=== PATIENT | female | born 1990 | race Two or more races ===

== ENCOUNTER 2021-05-12 20:17 | Emergency (ER) | payer OTHER ==
[2021-05-12 20:47] VITALS: BP 111/62; PULSE 101; TEMP 101.3; BMI 21.0
[2021-05-12] MEDS ORDERED: ACETAMINOPHEN 500 MG TABLET (FP) PO ONE (20:59)
[2021-05-12] MEDS ORDERED: ACETAMINOPHEN 500 MG TABLET (FP) ONE (21:18)
== END 2021-05-12 21:25 | disposition home or self-care (01) ==
LOC: JER 20:17
DX: R51.9 Headache, unspecified (principal); R50.9 Fever, unspecified; M79.10 Myalgia, unspecified site; Z11.52 Encounter for screening for COVID-19
CPT/HCPCS: 99283-25; C9803; U0003; U0005